=== PATIENT | male | born 1995 | race Caucasian/White ===

== ENCOUNTER 2017-06-23 19:38 | Emergency (ER) | payer BC ==
[~2017-06-23] VITALS: Ht 180.3 cm; Wt 67.9 kg
[~2017-06-23 19:38] MED LIST: CEFD300C PO; DEXA6TAB PO; NAPR250UDC PO; Z.0.NO CURRENT MEDS
[2017-06-23 19:49] VITALS: BP 132/70; PULSE 76; RESP 19; TEMP 98.9
--- NOTE | 2017-06-23 20:04 | PD ---
HPI Chief Complaint: Injury Time Seen by Provider: 20:00 Travel History International Travel<30 days: No Contact w/Intl Traveler<30days: No Traveled to known affect area: No History of Present Illness HPI This 21-year-old male is complaining of pain in his left wrist. He injured it about half an hour ago skateboarding. He landed on his wrist. He did not hit his head. He has no other injury. [facility] Past Medical History Asthma: No Autoimmune Disease: No Blood Disorders: No Anxiety: No Depression: No Cardiovascular Problems: No Cystic Fibrosis: No Developmental Delay: No Diminished Hearing: No Gastrointestinal Disorders: No Genitourinary: No Headaches: Yes Musculoskeletal: No Neurologic: No Psychiatric: No Respiratory: Yes (ADMITTED FOR PNEUMONIA) Immunizations Current: Yes Seizures: No Social History Alcohol Use: No Tobacco Use: No Substance Use: No Allergies-Medications (Allergen,Severity, Reaction): Coded Allergies: amoxicillin (Verified Allergy, Intermediate, Rash, 06/23/17) Reported Meds & Prescriptions Reported Meds & Active Scripts Active No Active Prescriptions or Reported Medications Review of Systems General / Constitutional: No: Fever, Chills Eyes: No: Diploplia, Blurred Vision HENT: No: Headaches, Vertigo Cardiovascular: No: Chest Pain or Discomfort, Palpitations Respiratory: No: Cough, Shortness of Breath Gastrointestinal: No: Nausea, Vomiting Genitourinary: No: Urgency Musculoskeletal: Positive: Myalgias, Pain Neurologic: No: Weakness, Dizziness Physical Exam Narrative GENERAL: Well-developed male SKIN: Focused skin assessment warm/dry. HEAD: Atraumatic. Normocephalic. EYES: Pupils equal and round. No scleral icterus. No injection or drainage. ENT: No nasal bleeding or discharge. Mucous membranes pink and moist. NECK: Trachea midline. No JVD. CARDIOVASCULAR: Regular rate and rhythm. No murmur appreciated. RESPIRATORY: No accessory muscle use. Clear to auscultation. Breath sounds equal bilaterally. GASTROINTESTINAL: Abdomen soft, non-tender, nondistended. Hepatic and splenic margins not palpable. MUSCULOSKELETAL: There is tender for deformity of the left wrist. Skin is intact. There is good sensation distal to the injury NEUROLOGICAL: Awake and alert. No obvious cranial nerve deficits. Motor grossly within normal limits. Normal speech. PSYCHIATRIC: Appropriate mood and affect; insight and judgment normal. Data Data Last Documented VS Vital Signs Date Time Temp Pulse Resp B/P (MAP) Pulse Ox O2 Delivery O2 Flow Rate FiO2 06/23/17 19:49 98.9 76 19 132/70 (90) Orders Orders Wrist, Limited (Ap&Lat) (06/23/17 20:02) Acetamin-Hydrocod 325-5 Mg ([place] 5-325 (06/23/17 20:45) MDM Medical Decision Making Medical Screen Exam Complete: Yes Emergency Medical Condition: Yes Medical Record Reviewed: Yes Differential Diagnosis Differential includes fractured wrist, dislocation wrist Narrative Course X-ray shows a fracture of the distal radius with about 45 of dorsal angulation. Case discussed with Dr. Laughlin. He recommends sugar tong splint and he will see the patient at [facility] Wednesday morning at 8:00 Diagnosis Primary Impression: Fracture of left wrist Qualified Codes: S62.102A - Fracture of unspecified carpal bone, left wrist, initial encounter for closed fracture Additional Instructions: Keep the wrist elevated and apply ice. Follow-up with Dr. Laughlin at 8:00 in the morning at the [facility] on Wednesday Scripts Hydrocodone-Acetaminophen (Lortab) 7.5-325 Mg Tab 1 TAB PO Q4H Y for PAIN, #30 TAB 0 Refills Prov: Tylor Santiago MD 06/23/17 Disposition: 01 DISCHARGE HOME Condition: Stable Tylor Santiago MD Jun 23, 2017 20:04
--- NOTE | 2017-06-23 20:26 | RADRPT ---
EXAM DATE/TIME: 06/23/2017 20:06 [facility] COMPARISON: No previous studies available for comparison. INDICATIONS : Left wrist pain post fall. MEDICAL HISTORY : None. SURGICAL HISTORY : None. ENCOUNTER: Initial ACUITY: 1 day PAIN SCORE: 10/10 LOCATION: Left wrist. FINDINGS: There is a comminuted fracture in the physeal scar region of the distal radius. There is dorsal predo minant impaction which contributes to moderate degree of dorsal angulation deformity. I believe the a rticular surface is intact. There is no subluxation. No perceptible ulna fracture. CONCLUSION: Comminuted and dorsally angulated metaphyseal fracture of the left radius. Andres Burroughs MD on June 23, 2017 at 20:23 Board Certified Radiologist. This report was verified electronically.
[2017-06-23] MEDS ORDERED: HYDR-3534 PO (20:41)
[2017-06-23] MEDS ORDERED: ACETAMINOPHEN/HYDROcodone 325 MG/5 MG TAB PO ONE (20:45)
[2017-06-23 21:52] VITALS: RESP 16
== END 2017-06-23 22:13 | disposition home or self-care (01) ==
LOC: PHED 19:38
DX: S62.102A Fracture of unspecified carpal bone, left wrist, initial encounter for closed fracture (principal); V00.131A Fall from skateboard, initial encounter; Y93.51 Activity, roller skating (inline) and skateboarding
CPT/HCPCS: 29125; 73100

== ENCOUNTER → 2017-06-29 | Day surgery (SDC) | payer BC ==
[~2017-06-29] MED LIST changes: +BUPIVACAINE HCL PF 0.75% 30 ML VIAL ONE; +DEXAMETHASONE SOD PHOS 4 MG/ML VIAL IV ONE; +HYDR-3534 PO; +LACTATED RINGER'S 1000 ML INJ 1,000 ML ONE; +LIDOCAINE 1.5%/EPINEPHrine 1:200,000 PF SOLN 30 ML AMP ONE; +MIDAZOLAM HCL 5 MG/ML VIAL (1 ML) ONE; +ONDANSETRON HCL 4 MG/2 ML VIAL IV PUSH ONE; +PROPOFOL 200 MG/20 ML AMP IV ONE; +ceFAZolin INJ 1,000 MG VIAL ONE
--- NOTE | 2017-06-29 16:55 | TN ---
cc: PINKY ALONZO M.D. DATE OF SURGERY: 06/29/2017 PREOPERATIVE DIAGNOSIS Fracture of the left distal radius and ulnar styloid. POSTOPERATIVE DIAGNOSIS Fracture of the left distal radius and ulnar styloid. PROCEDURE Open treatment internal fixation left distal radius fracture with volar plates and screws. SURGEON: Pinky Alonzo MD. COMM[employer]ETING MANAGER: JOSE GUADALUPE Giles. ANESTHESIA: General with regional block. ESTIMATED BLOOD LOSS: Minimal INDICATIONS: The patient is a 21 year-old white male with significant left arm pain after a fall. X-rays show evidence of a very displaced intra-articular distal radius fracture with free fragments. He presents for open treatment, internal fixation. DESCRIPTION OF PROCEDURE: The patient was brought to the operating room, anesthetized, placed in the supine position. The left arm was scrubbed with alcohol followed by Hibiclens, followed Chloraprep, and draped sterilely. Antibiotics were given within a one hour time limit. Time-out was done. After exsanguination the tourniquet was inflated to 250 mmHg. A volar incision was made, centering over the flexor carpi radialis tendon. The radial artery was identified and protected. The distal fracture was identified. This was brought into position and held. The IPS plate system was utilized. A three hole plate was placed and held positionally. A single screw was placed in the gliding screw hold. The plate was adjusted slightly and felt to be in a very satisfactory position. This was held while the fracture was reduced. Multiple locking screws were placed distally and three screws placed proximally. Overall alignment was anatomic. The tourniquet was let down. Hemostasis was controlled with bipolar cautery. The fascia was closed with interrupted 2-0 Vicryl suture, skin and subcutaneous tissue with 3-0 nylon in a mattress fashion. A sterile dressing was applied. The patient was awakened and taken to the Recovery Room in satisfactory condition. Pinky Alonzo MD [facility] [place] [facility] [place] /4:23 PM /4:46 PM
== END | disposition home or self-care (01) ==
LOC: ESDC 12:08
PROVIDERS: ATTEND Orthopaedic Surgery Orthopaedic Surgery of the Spine
DX: S52.572A Other intraarticular fracture of lower end of left radius, initial encounter for closed fracture (principal)
CPT/HCPCS: 01830; 01991; 25609; 64415; 73100; 76000; C1713; J0690; J1100; J2250; J2405; J3010; J7120